=== PATIENT | female | born 1940 | race Caucasian/White ===

== ENCOUNTER → 2016-10-27 | Outpatient (CLI) | payer OTHER ==
--- NOTE | 2016-10-27 16:27 | US ---
Thyroid Ultrasound History: Hoarse voice, swelling, on Synthroid. Comparison: None available. Technique: Longitudinal and transverse ultrasound imaging of the thyroid gland. Findings: The right lobe of the thyroid measures 1.5 x 1.2 x 3.7 cm. The right lobe of the thyroid is homogeneous with no nodules identified. The left lobe of the thyroid measures 1.3 x 0.9 x 3.8 cm. There is a hypoechoic 6 x 6 x 4 mm structu re in the mid left thyroid that appears to be mixed cystic and solid. The isthmus is normal. No pathologically enlarged lymph nodes are identified. Impression: 6 mm left thyroid nodule of doubtful clinical significance.
--- NOTE | 2016-10-27 17:29 | MA ---
Screening Digital Mammogram With iCAD Analysis Clinical Indications: Routine screening. Patient has had a benign left breast biopsy. Technique: Standard cephalocaudal projections are obtained. Digital breast tomosynthesis was performe d in the MLO projection with reconstruction at 1.0 mm slice thickness and composite MLO views reconst ructed. This examination is processed by the iCAD computer aided detection system. Comparison: June 2013, September 2011, September 2010, April 2008. Breast density: Type B; Scattered fibroglandular densities. Findings: CAD was reviewed. No masses, suspicious calcifications or secondary signs of malignancy are seen. There has been no significant change in the appearance of either breast. Impression: Negative mammogram. BI-RADS 1. Recommendation: Routine mammographic screening in one year. [facility] will send a result letter to the patient. Negative mammography should not preclude additional workup of a clinically suspicious finding. The patient's information is entered into a reminder system with a target due date for her next mammo gram.
== END ==
LOC: FIMAGING 13:48
PROVIDERS: ATTEND Family Medicine
DX: Z12.31 Encounter for screening mammogram for malignant neoplasm of breast (principal); R49.0 Dysphonia; R22.1 Localized swelling, mass and lump, neck
CPT/HCPCS: G0202

== ENCOUNTER → 2017-08-06 | Outpatient (CLI) | payer OTHER | LOC: FIMAGING 15:14 | PROVIDERS: ATTEND Emergency Medicine | DX: M79.89 Other specified soft tissue disorders (principal); R60.0 Localized edema ==

== ENCOUNTER → 2018-01-21 | Outpatient (CLI) | payer OTHER | LOC: BHFA 14:45 | PROVIDERS: ATTEND Internal Medicine Cardiovascular Disease | DX: R60.9 Edema, unspecified (principal) ==

== ENCOUNTER → 2019-03-03 | Outpatient (CLI) | payer OTHER | LOC: CIMAGING 09:32 ==